=== PATIENT | male | born 1995 | race Two or more races ===

== ENCOUNTER 2022-03-15 22:58 | Emergency (ER) | payer MEDICAID ==
[~2022-03-15] VITALS: Ht 167.6 cm; Wt 56.7 kg
[2022-03-15 22:58] VITALS: BP 136/87
[2022-03-16 01:48] LABS: Urine Bacteria NONE SEEN /hpf (None Seen); Urine Blood Negative /uL (Negative); Urine Mucus FEW (None Seen); Urine Specific Gravity 1.016 (1.001-1.035); Urine WBC 1 /hpf (0 - 3)
== END 2022-03-16 05:07 | disposition left against medical advice (07) ==
LOC: ER 22:58
DX: R50.9 Fever, unspecified (principal); Z20.822 Contact with and (suspected) exposure to COVID-19; Z53.21 Procedure and treatment not carried out due to patient leaving prior to being seen by health care provider
CPT/HCPCS: 36415; 81001